=== PATIENT | female | born 1955 | race Caucasian/White ===

== ENCOUNTER 2019-05-16 17:59 | Emergency (ER) | payer BC, SELFPAY ==
[2019-05-16 18:21] VITALS: BP 141/82; PULSE 125; RESP 20; TEMP 37.2; O2SAT 96
--- NOTE | 2019-05-16 18:28 | ED.URI ---
HPI - URI/Sore Throat General Chief Complaint: Upper Respiratory Infection Stated Complaint: Cough/Sob/Wheezing Time Seen by Provider: 05/16/19 18:45 Source: patient and RN notes reviewed Mode of arrival: ambulatory Limitations: no limitations History of Present Illness HPI Narrative: 63-year-old female presents with concern for ongoing cough. Reports upper respiratory symptoms for approximately 2 weeks with cough not improving. Reports rhinorrhea, nasal congestion. Reports low-grade fever. MD elicited complaint: cough Related Data Home Medications Medication Instructions Recorded Confirmed meloxicam 15 mg tablet 15 mg PO DAILY 03/04/19 04/19/19 Allergies Allergy/AdvReac Type Severity Reaction Status Date / Time citalopram Allergy Unknown Cough Verified 04/11/19 13:50 sertraline Allergy Unknown Rash Verified 04/11/19 13:50 Review of Systems Review of Systems: Narrative: CONSTITUTIONAL: Reports malaise. Denies chills, sweats, or fever. EYES: Denies visual changes, redness, or discharge. ENT: Reports rhinorrhea, congestion. Denies sinus pain, otalgia and sore throat. CARDIOVASCULAR: Denies chest pain, palpitations, or edema. RESPIRATORY: Reports cough, wheezing, occasional dyspnea. GASTROINTESTINAL: Denies abdominal pain, nausea, vomiting, diarrhea SKIN: Denies rash or itching. MUSCULOSKELETAL: Denies myalgia. NEUROLOGIC: Denies headache. All systems reviewed & are unremarkable except as noted in HPI and below PMFSH Past Medical History Medical History Allergic rhinitis Asthma Depression Dysfunction of right eustachian tube Hyperlipidemia Social History Social History Smoking status: Never smoker Alcohol intake: current Comments At time of signature, agree with nursing past medical, surgical, social and family history. There is no relevant family history pertinent to the presenting complaint Exam Narrative: Exam Narrative: GENERAL: Well-appearing, well-nourished, and in no acute distress. HEAD: Normocephalic EYES: PERRLA, conjunctivae clear ENT: Nares clear, turbinates erythematous, clear discharge. Mucous membranes moist. TM pearly monk with dull light reflex bilaterally; no tragal tenderness. Oropharynx not erythematous without lesions. Tonsils not enlarged and without exudate, no drooling, no hoarseness, no trismus, uvula midline. NECK: Supple. No lymphadenopathy CHEST: Generalized inspiratory wheeze, breath sounds diminished in the right lower lobe. No rhonchi, rales, or stridor. No respiratory distress, conversational shortness of breath HEART: Regular rate and rhythm. No murmur heard. SKIN: Warm, dry, no rash. NEURO: Alert and oriented x3. PSYCH: Normal mood and affect Course Course Emergency Course: DuoNeb given, patient reassessed Patient is aware of diagnosis, understands and agrees to treatment plan. Anticipatory guidance given. Patient agrees to follow-up as directed and is aware of reasons to seek care at the emergency department. Portions of this record may have been created with voice recognition software Reevaluation(s) Reevaluation #1: Aeration improved, aeration good, still hear scattered expiratory wheeze. Date: 05/16/19 Time: 19:29 Vital Signs Vital signs: Vital Signs Temperature 99.0 F 05/16/19 18:21 Pulse Rate 125 H 05/16/19 18:21 Respiratory Rate 20 05/16/19 18:21 Blood Pressure 141/82 H 05/16/19 18:21 Pulse Oximetry 96 05/16/19 18:21 Temperature 99.0 F 05/16/19 18:21 Pulse Rate 125 H 05/16/19 18:21 Respiratory Rate 20 05/16/19 18:21 Blood Pressure 141/82 H 05/16/19 18:21 Pulse Oximetry 96 05/16/19 18:21 Reviewed. MDM - URI/Sore Throat MDM Narrative Medical decision making narrative: Differential diagnosis considered: Strep pharyngitis, allergic rhinitis, upper respiratory tract infection, sinusitis, rhinosinusitis, nasopharyn
[2019-05-16] MEDS: ALBUTEROL SULFATE NEB 2.5 MG/3 ML INH INHALATION (18:56)
[2019-05-16] MEDS: IPRATROPIUM BR 0.02% INH SOLN 0.5 MG/2.5 ML VIAL INHALATION (18:56)
[2019-05-16 19:30] VITALS: PULSE 110; RESP 20; O2SAT 97
== END 2019-05-16 19:35 | disposition home or self-care (01) ==
PROVIDERS: Emergency Provider Nurse Practitioner; PCP Family Medicine
DX: J20.9 Acute bronchitis, unspecified (principal); J45.909 Unspecified asthma, uncomplicated; E78.5 Hyperlipidemia, unspecified
CPT/HCPCS: 94640; 99213; G0463

== ENCOUNTER 2022-05-19 23:05 | Outpatient (NON) | payer OTHER, SELFPAY | END 2022-05-19 23:06 | disposition home or self-care (01) | LOC: ANHLAB 23:06 | PROVIDERS: PCP Family Medicine; Visit Provider Family Medicine | DX: N39.0 Urinary tract infection, site not specified (principal) | CPT/HCPCS: 87086 ==

== ENCOUNTER 2022-07-15 09:51 | Outpatient (CLI) | payer OTHER, SELFPAY ==
--- NOTE | ~2022-07-15 | MM_ITS ---
EXAMINATION: MM screening [facility] BI w joan HISTORY: Screening mammogram TECHNIQUE: Craniocaudal and mediolateral oblique 3-D tomosynthesis images were obtained and synthetic 2-D images were generated. CAD analysis was submitted and interpreted. COMPARISON: 04/06/2018, 09/11/2017, 12/19/2016, 12/09/2016 BREAST PARENCHYMAL COMPOSITION: The breasts are heterogeneously dense, which may obscure small masses . FINDINGS: No suspicious mass, calcification, or architectural distortion are identified in either elijah ast to suggest malignancy. There has been no suspicious interval change. IMPRESSION: 1. No mammographic evidence of malignancy. 2. Recommend routine screening mammography in one year. BI-RADS Category 1: Negative Reviewed, dictated and finalized at location A.
--- NOTE | ~2022-07-15 | DEXA_ITS ---
Bone Density Report Name: GUI BROWN Age: 66 Sex: Female Ethnicity: White Date of : 1955 Indication: postmenopausal; screening for osteoporosis; height loss; asthma or emphysema; Referring Provider: PAUL LOPEZ Study: Bone densitometry was performed. Exam Date: July 15, 2022 Accession number: [id number] Bone Density: Region BMD T-score Z-score Classification AP Spine(L1-L4) 0.948 -0.9 0.9 Normal Femoral Neck (Left) 0.651 -1.8 -0.2 Osteopenia Total Hip (Left) 0.876 -0.5 0.7 Normal Femoral Neck (Right) 0.653 -1.8 -0.2 Osteopenia Total Hip (Right) 0.865 -0.6 0.6 Normal Total Hip Mean 0.870 -0.6 0.7 Normal World Health Organization criteria for BMD impression classify patients as: Normal (T-score at or above -1.0), Osteopenia (T-score between -1.0 and -2.5), or Osteoporosis (T-score at or below -2.5). 10-year Fracture Risk(1): Major Osteoporotic Fracture 9.3% Hip Fracture 1.1% Reported Risk Factors: [place] (), Neck BMD=0.651, BMI=32.1 (1) FRAX(R) Version 3.08. Fracture probability calculated for an untreated patient. Fracture probability may be lower if the patient has received treatment. Clinical Information Provided by Patient: Has the following medical conditions: Asthma or Emphysema Patient maximum height was 62 Menopause Age: 56 No regular weight bearing exercise Drinks caffeinated beverages Onset of menses at age 13 Number of children 0 Impression: The patient has low bone mass, based on the Left Femoral Neck T-score. The patient has an estimated ten-year risk of hip fracture of 1.1% and an estimated ten-year risk of major fracture of 9.3%, based on the WHO FRAX algorithm. Discussion: BONE DENSITY IS LOW AT ONE OR MORE SKELETAL SITES. This patient's lowest T-score is low at one or more skeletal sites. It meets the World Health Organization's (WHO) criteria for ?low bone mass? (T-score between -1.0 and -2.5). The patient's 10-year risk of fracture as calculated by FRAX is less than the threshold where pharmacological therapy is recommended by the National Osteoporosis Foundation (NOF). However, all treatment decisions require clinical judgment and consideration of individual patient factors, including patient preferences, comorbidities, previous drug use, risk factors not captured in the FRAX model (e.g., frailty, falls, vitamin D deficiency, increased bone turnover, interval significant decline in bone density) and possible under or overestimation of fracture risk by FRAX. The patient should follow a healthful lifestyle (good nutrition with adequate calcium and vitamin D, and appropriate weight-bearing exercise). Follow-Up: Consider repeating this study in 2 to 3 years to reassess this patient's status, or sooner if there is some new clinical indicat
== END 2022-07-15 09:52 | disposition home or self-care (01) ==
LOC: ANHIMG 09:52
PROVIDERS: PCP Family Medicine; Visit Provider Nurse Practitioner Family
DX: Z12.31 Encounter for screening mammogram for malignant neoplasm of breast (principal); Z78.0 Asymptomatic menopausal state; M85.852 Other specified disorders of bone density and structure, left thigh; M85.851 Other specified disorders of bone density and structure, right thigh
CPT/HCPCS: 77063; 77067; 77080

== ENCOUNTER 2024-06-08 12:53 | Emergency (ER) | payer OTHER, SELFPAY ==
--- OUTSIDE RECORDS SUMMARY | 2024-06-08 12:56 | XMS_ITS | Clinical Summary ---
Author Organization [facility] Building [address] Address [address] [place] [address] Care Team Providers Care Clay Miner Name Role Phone No, Physician Primary Care Provider [phone] Allergies No known active allergies Medications naproxen (ALEVE) 220 mg tablet Take by mouth 2 (two) times a day with meals Active Active Problems Problem Noted Date Diagnosed Date Hearing loss of right ear 11/25/2019 Assessment & Plan (11/25/2019 2:46 PM CDT): Avoid ear cleaning techniques Avoid water to ears Apply Cortisone to outer portion of ear only Hearing test with [facility] Impacted cerumen of right ear 11/25/2019 Assessment & Plan (11/25/2019 2:46 PM CDT): Avoid ear cleaning techniques Avoid water to ears Apply Cortisone to outer portion of ear only Hearing test with [facility] Social History Tobacco Use Types Packs/Day Years Used Date Smoking Tobacco: Never Smokeless Tobacco: Never Personal Safety Answer Date Recorded Getting School Help Needed Not on file 05/19 Comments Unknown Sex and Gender Information Value Date Recorded Sex Assigned at Not on file 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 Gender Identity Not on file Sexual Orientation Not on file Obstetrics History Last Filed Vital Signs Vital Sign Reading Time Taken Comments Blood Pressure 117/79 11/25/2019 2:26 PM CDT Pulse 81 11/25/2019 2:26 PM CDT Temperature 36.6 C (97.8 F) 11/25/2019 2:26 PM CDT Respiratory Rate - - Oxygen Saturation - - Inhaled Oxygen Concentration - - Weight 69.9 kg (154 lb 3.2 oz) 11/25/2019 2:26 P M CDT Height 154.9 cm (5' 1 ) 11/25/2019 2:26 PM CDT Body Mass Index 29.14 11/25/2019 2:26 PM CDT Plan of Treatment Not on file Insurance [employer] [place] Care Teams Clay Miner Relationship Specialty Start Date End Date No, Physician PCP - General 11/25/19
--- OUTSIDE RECORDS SUMMARY | 2024-06-08 12:56 | XMS_ITS | Referral Summary ---
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
--- OUTSIDE RECORDS SUMMARY | 2024-06-08 12:56 | XMS_ITS | Clinical Summary ---
Author Organization [facility] Address [address], [address] [address] Phone Care Team Providers Care Deployment Engineer Name Role Phone Unavailable Primary Care Provider Unavailabl e Allergies No known active allergies Medications naproxen sodium (ALEVE) 220 MG Tablet Take 220 mg by mouth as needed. Active Probiotic Product (PROBIOTIC DAILY PO) Take by mouth daily. 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 Immunizations Immunization Administration Dates Next Due Covid-19, Mrna, Lnp-s, PF, 1 00 mcg/0.5 mL Dose (Moderna) 08/10/2020,07/13/2020 Family History Medical History Relation Name Comments No Known Problems Brother Depression Father Alzheimer's Disease Maternal Uncle Alzheimer's Disease Mother Colon Cancer Mother age 74 Colon Cancer Other cousin age 56 Colon Cancer Paternal Uncle No Known Problems Sister Relation Name Status Comments Brother Alive Father Maternal Uncle Mother Other cousin Paternal Uncle Sister Alive Social History Tobacco Use Types Packs/Day Years Used Date Smoking Tobacco: Never Smokeless Tobacco: Never Alcohol Use Standard Drinks/Week Comments Yes 2 (1 standard drink = 0.6 oz pur e alcohol) Comments Unknown Sex and Gender Information Value Date Recorded Sex Assigned at Not on file Legal Sex Female 9:09 PM CDT Gender Identity Not on file Sexual Orientation Not on file 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 Industry Job Start 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 Job 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 Not on file Not on file Not on file Last Filed Vital Signs Vital Sign Reading Time Taken Comments Blood Pressure 108/62 08/24/2020 10:19 AM CDT Pulse 67 08/24/2020 10:19 AM CDT Temperature 37 C (98.6 F) 08/24/2020 7:44 AM CDT Respiratory Rate 19 08/24/2020 10:19 AM CDT Oxygen Saturation 100% 08/24/2020 10:19 AM CDT Inhaled Oxygen Concentration - - Weight 75.3 kg (166 lb) 08/13/2020 11:00 AM CDT Height 157.5 cm (5' 2 ) 08/13/2020 11:00 AM CDT Body Mass Index 30.36 08/13/2020 11:00 AM CDT Plan of Treatment Health Maintenance Due Date Last Done Comments Hepatitis C Virus (HCV) Screening 1955 TdaP Immunization 1955 Cologuard 2006 Immunochemical Fecal Occult Blood 2006 Pneumococcal Immunization (5 0+ years) (1 of 1 - PCV) 2006 Zoster Immunization (1 of 2) 2006 Influenza Immunization (#1) 2023 SARS-COV-2 Immunization ( season) 2023 02/24/2021, 08/10/2020, 07/13/2020 Colonoscopy 08/24/2025 08/24/2020, 04/01/2015 Colorectal Cancer Screening 08/24/2025 Respiratory Syncytial Virus (RSV) Immunization (Adult) (1 - 1-dose 75+ series) 09/23/2031 08/24/2020, 04/01/2015 Mammogram Discontinued 12/09/2016 Hepatitis B Immunization Aged Out No longer eligible based on patient's age to complete this topic Meningococcal Immunization (ACWY) Aged Out No longer eligible based on patient's age to complete this topic Rotavirus Immunization Aged Out No lo nger eligible based on patient's age to complete this topic Procedures Procedure Name Priority Date/Time Associated Diagnosis Comments NANCY SCREENING BILATERAL WITH CAD Routine 12/09/2016 from Last 3 Months or Most Recently Relevant to Health Maintenance Results * NANCY SCREENING BILATERAL WITH CAD (12/09/2016) Anatomical Region Laterality Modality breast Bilateral Mammography Jorge Pete MD IMG MAMMO ORDERABLES Final Result from Last 3 Months or Most Recently Relevant to Health Maintenance Insurance
--- OUTSIDE RECORDS SUMMARY | 2024-06-08 12:56 | XMS_ITS | Clinical Summary ---
Author Organization [facility] Address [address] [place] [address] Care Team Providers Care Rn Hemo Dialysis Name Role Phone Unavailable Primary Care Provider Unavailabl e Source Comments [facility],non-owned Affiliates and Associated Physician Practices is amultiple site organization consisting of ambulatory clinics and hospital sitesin [place], [place], [place] and [place]. This disclosure is being madepursuant to the Care Everywhere program and may not contain all information available regarding this patient. Last updated 17.[facility] Social History Tobacco Use Types Packs/Day Years Used Date Smoking Tobacco: Never Assessed Sex and Gender Information Value Date Recorded Sex Assigned at Not on file Gender Identity Not on file Sexual Orientation Not on file Plan of Treatment Health Maintenance Due Date Last Done Comments BONE DENSITY TESTING 1955 COLOGUARD (AGES 45-75) - COL ON CA SCREENING 1955 COLON MONITORING 1955 COLONOSCOPY - COLON CA SCREENING 1955 CT COLONOGRAPHY - COLON CA SCREENING 1955 Colorectal Cancer Screening 1955 FIT - COLON CA SCREENING 1955 FLEX SIG - COLON CA SCREENING 1955 LIPID TESTING 1955 MAMMOGRAM 1955 HEPATITIS C SCREENING 09/18/1974 DTAP/TDAP/TD VACCINES (1 - Tdap) 09/23/1975 PNEUMOCOCCAL VACCINE 50+ (1 of 1 - PCV) 2006 ZOSTER VACCINE (1 of 2) 2006 COVID-19 VACCINE ( - 2023-2 5 season) 2023 DEPRESSION SCREENING 03/06/2024 INFLUENZA VACCINE (Season Ended) 2024 Respiratory Syncytial Virus (RSV) Vaccine Pt: or over 60 yrs (1 - 1-dose 75+ series) 09/23/2031 HEPATITIS B VACCINE Aged Out No longe r eligible based on patient's age to complete this topic HIB VACCINE Aged Out No longer eligi ble based on patient's age to complete this topic HPV VACCINE Aged Out No longer eligi ble based on patient's age to complete this topic MENINGOCOCCAL (Group B) VACC INE SHARED DECISION-MAKING Aged Out No longer eligibl e based on patient's age to complete this topic MENINGOCOCCAL GROUPS A/C/Y/W VACCINE Aged Out No longer eligible b ased on patient's age to complete this topic
--- OUTSIDE RECORDS SUMMARY | 2024-06-08 12:56 | XMS_ITS | Clinical Summary ---
Author Organization [facility] Address [address] [place] [address] Phone Care Team Providers Care Entry Operator Name Role Phone Jorge Pete MD Primary Care Provider Allergies No known active allergies Medications No known medications Active Problems Patient Care Coordination No te Formatting of this note migh t be different from the original. Primary Care: Jorge Pete MD Referring Provider: No referring provider defined for this encounter. 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 Scratch 07/26/2018 Atypical ductal hyperplasia of breast 04/10/2017 Resolved Problems Problem Noted Date Diagnosed Date Resolved Date Papilloma 02/03/2017 07/26/2018 Family History Medical History Relation Name Comments Colon Cancer Mother Colon Cancer Paternal Cousin 1 Colon Cancer Paternal Cousin 2 Colon Cancer Paternal Uncle Relation Name Status Comments Mother Paternal Cousin 1 Paternal Cousin 2 Paternal Uncle Social History Tobacco Use Types Packs/Day Years Used Date Smoking Tobacco: Never Smokeless Tobacco: Never Alcohol Use Standard Drinks/Week Comments Yes 0 (1 standard drink = 0.6 oz pur e alcohol) moderate Comments No Sex and Gender Information Value Date Recorded Sex Assigned at Not on file 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 Gender Identity Not on file Sexual Orientation Not on file Last Filed Vital Signs Vital Sign Reading Time Taken Comments Blood Pressure 131/79 07/26/2018 10:34 AM CDT Pulse 83 07/26/2018 10:34 AM CDT Temperature 36.9 C (98.4 F) 07/26/2018 10:34 AM CDT Respiratory Rate 20 03/23/2017 10:20 AM DIE TRIMMER Oxygen Saturation 98% 07/26/2018 10:34 AM CDT Inhaled Oxygen Concentration - - Weight 77.2 kg (170 lb 3.2 oz) 07/26/2018 10:34 AM CDT Height 157.5 cm (5' 2 ) 07/26/2018 10:34 AM CDT Body Mass Index 31.13 07/26/2018 10:34 AM CDT Plan of Treatment Health Maintenance Due Date Last Done Comments DTAP/TDAP/TD VACCINES (1 - Tdap) 09/23/1975 COLORECTAL SCREENING 2001 Colorectal Cancer Screening 2001 FIT-DNA Q 3 years 2001 FIT/FOBT Q 1 year 2001 Flex Sig/CT Colonography Q 5 years 2001 PNEUMOCOCCAL VACCINE 50+ YEA RS (1 of 1 - PCV) 2006 ZOSTER VACCINE (1 of 2) 2006 BREAST CANCER SCREENING 12/21/2017 12/22/19 17, 12/19/2016, 12/09/2016 OSTEOPOROSIS SCREENING 2021 INFLUENZA VACCINE (#1) 2023 RSV VACCINE (60+ or ) (1 - 1-dose 75+ series) 09/23/2031 Medical Devices Implanted Type Area Live Games Dealer Device Identifier Shelf Expiration Date Model / Serial / Lot Hemostatic Surgicel 2x14in 1949 - [id number] Implanted:Qty: 1 on 03/23/2017 by Bozena Moran MD at [facility] Hemostatic Right: Breast [employer] 08/03/20201950 / / [id number] Procedures Procedure Name Priority Date/Time Associated Diagnosis Comments MAMMO DIAGNOSTIC UNI RIGHT W OR WO CAD Routine 12/21/2016 from Last 3 Months or Most Recently Relevant to Health Maintenance Results * MAMMO DIAGNOSTIC UNI RIGHT W OR WO CAD (12/21/2016) Anatomical Region Laterality Modality Breast Right Mammography us Jorge Pete MD MAMMO ORDERABLES Edited Res ult - Final from Last 3 Months or Most Recently Relevant to Health Maintenance Insurance BLUE PREFERRED Advance Directives For more information, please contact: [phone] Documents on File Type Date Recorded Patient Die Designer Expl anation Advance Directive Living Will 02/03/2017 9:46 AM Advance Directive Living Will Advance Directive POA 02/03/2017 9:45 AM A dvance Directive POA * Full Code (Latest Code Status on File) Date Activated Date Inactivated Comments 03/23/2017 9:06 AM 03/23/2017 12:42 PM Care Teams Entry Operator Relationship Specialty Start Date End Date Jorge Pete MD [address] [place] [address] PCP - General Family Practice 02/03/17
[2024-06-08 12:58] VITALS: BP 117/68; PULSE 106; RESP 20; TEMP 37; O2SAT 100
[2024-06-08 13:21] LABS: EDINFLUASCREEN Negative (Negative); EDINFLUBSCREEN Negative (Negative)
--- NOTE | 2024-06-08 13:28 | ED.GENADULT ---
HPI - General Adult General Chief complaint: Upper Respiratory Infection Stated complaint: Earache,Headache,Cough,Congestion Source: patient Mode of arrival: ambulatory Limitations: no limitations History of Present Illness HPI narrative: Pt presents for evaluation of sick symptoms for the past four days. Symptoms include fever, chills, headache, body aches, bilateral ear pressure, sinus congestion, thick yellow/green nasal drainage and productive cough of yellow/green sputum. She has also woke from sleep with her eyes matted shut with thick yellow drainage. Denies visual disturbance. She does not were glasses or contacts. Her is currently sick with similar symptoms. His symptoms started 2 days prior to hers. She does not smoke. She has been taking dayquil and nyquild for her symptoms. She denies any nausea, vomiting or diarrhea. She took a COVID test at home 2 days ago which was negative. Related Data Allergies Allergy/AdvReac Type Severity Reaction Status Date / Time sertraline Allergy Unknown Rash Verified 11/08/22 14:09 Review of Systems Review of Systems: CONSTITUTIONAL: Reports fever, chills, fatigue EYES:Reports thick yellow drainage from the eyes. Denies visual changes ENT: Reports sinus congestion, thick yellow drainage from the nares, and pressure in the ears. Denies sore throat. CARDIOVASCULAR: Denies chest pain, palpitations, or edema. RESPIRATORY: Reports productive cough of yellow sputum. Denies shortness of breath. GASTROINTESTINAL: Denies abdominal pain, nausea, vomiting, or diarrhea. GENITOURINARY: Denies dysuria or hematuria. SKIN: Denies rash or itching. MUSCULOSKELETAL: Reports generalized body aches. NEUROLOGIC: Reports headache. Denies numbness, dizziness, or weakness. PSYCHIATRIC: Denies anxiety or depression. [facility] Past Medical History Medical History Hyperlipidemia Allergic rhinitis Asthma Surgical History Surgical History Hx of breast biopsy RT breast -12/2016 H/O colonoscopy 09/2008, 10/2015 Family History Family History Mother Carcinoma of colon Family history of Alzheimer's disease Social History Social History Social History: Patient is to her Yamil for 30 yrs, they have no children. 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 Smoking status: Never smoker Alcohol intake: current Substance use: never Substance use type: does not use Lack of Transportation: No Lack of Food: Never True Current Housing: I Have Housing Concerned About Future Housing: No Difficulty Paying Gas/Electric Bills: No Difficulty Paying for Meds: No Currently Unemployed: No Education: High School Diploma/GED Difficulty w/ Childcare or Family Care: No Living arrangements: with family Additional living arrangements comments: Occupation/Education: occupation Additional occupation/education comments: Self Gender identity (if verbalized by the patient): Female Sexual Orientation (if Verbalized by the Patient): Straight or Heterosexual Spiritual care concerns: No Exam Narrative: GENERAL: Well-appearing, well-nourished, and in no acute distress. HEAD: Normocephalic, atraumatic. EYES: PERRLA and EOMI. Bilateral conjunctival injection. ENT: Nares clear, no rhinorrhea or epistaxis. Mucous membranes moist. Oropharynx without tonsillar hypertrophy exudate or other lesions. Bilateral TMs are erythematous. Right tympanic membrane is bulging. NECK: Supple. No adenopathy or masses. No carotid bruits or JVD CHEST: Clear to auscultation. No respiratory distress. No wheezes rales or rhonchi HEART: Regular rate and rhythm. No murmur heard. Normal peripheral pulses. ABDOMEN: Soft, nontender, nondistended, normal active bowel sounds. EXTREMITIES: Normal range of motion. No edema. SKIN: Warm, dry, no rash. NEURO: No focal deficits. Alert and oriented x3. PSYCH: Normal mood and affect. Course Course Emergency Course: This is a 68-year-old female who presented for evaluation of sick symptoms. Per COVID test at home was negative. Influenza negative here. She does have evidence of otitis media and conjunctivitis. Will treat with Augmentin and erythromycin. Follow-up with primary provider. Go to the ER for worsening symptoms. Patient in agreement with plan of care. Level of Care: Express Care Visit Vital Signs Vital signs: Vital Signs Temperature 37.0 C 06/08/24 12:58 Pulse Rate 106 H 06/08/24 12:58 Respiratory Rate 20 06/08/24 12:58 Blood Pressure 117/68 06/08/24 12:58 Pulse Oximetry 100 06/08/24 12:58 Oxygen Delivery Room Air 06/08/24 12:58 Temperature 37.0 C 06/08/24 12:58 Pulse Rate 106 H 06/08/24 12:58 Respiratory Rate 20 06/08/24 12:58 Blood Pressure 117/68 06/08/24 12:58 Pulse Oximetry 100 06/08/24 12:58 Oxygen Delivery Room Air 06/08/24 12:58 Medical Decision Making Vital Signs Vital Signs: Vital Signs Temperature 37.0 C 06/08/24 12:58 Pulse Rate 106 H 06/08/24 12:58 Respiratory Rate 20 06/08/24 12:58 Blood Pressure 117/68 06/08/24 12:58 Pulse Oximetry 100 06/08/24 12:58 Oxygen Delivery Room Air 06/08/24 12:58 Temperature 37.0 C 06/08/24 12:58 Pulse Rate 106 H 06/08/24 12:58 Respiratory Rate 20 06/08/24 12:58 Blood Pressure 117/68 06/08/24 12:58 Pulse Oximetry 100 06/08/24 12:58 Oxygen Delivery Room Air 06/08/24 12:58 Lab Data Labs: Lab Results 06/08/24 Range/Units 13:19 POC Influenza A Ag Negative (Negative) POC Influenza B Ag Negative (Negative) Discharge Plan Discharge Clinical Impression: Acute otitis media, right, Conjunctivitis Patient Disposition: Home, Self-Care Condition: Stable Instructions: Antibiotic Form, Ear Infection (GEN), Conjunctivitis (ED) Patient Language: Danish Prescriptions: New amoxicillin-pot clavulanate 875-125 mg tablet 1 tablet PO Q12H Qty: 20 0RF erythromycin 5 mg/gram (0.5 %) ointment 0.5 inch EACH EYE QID Qty: 3.5 0RF No Action albuterol sulfate 90 mcg/actuation HFA aerosol inhaler 2 puff INHALATION QID PRN (Reason: shortness of breath or wheezing) Qty: 8.5 1RF cholecalciferol (vitamin D3) 50 mcg (2,000 unit) capsule 50 mcg PO DAILY Qty: 1 0RF citalopram 20 mg tablet 20 mg PO DAILY Qty: 90 1RF atorvastatin 20 mg tablet 20 mg PO QHS Qty: 90 1RF Follow-up/Referrals: Hugh Bridges MD [Primary Care Provider] - Time of Disposition: 13:21
== END 2024-06-08 13:25 | disposition home or self-care (01) ==
PROVIDERS: Emergency Provider Nurse Practitioner; PCP Family Medicine
DX: H66.91 Otitis media, unspecified, right ear (principal); H10.9 Unspecified conjunctivitis; E78.5 Hyperlipidemia, unspecified; J45.909 Unspecified asthma, uncomplicated
CPT/HCPCS: 87804; 99213; G0463

== ENCOUNTER 2024-11-06 13:11 | Outpatient (CLI) | payer OTHER, SELFPAY ==
--- NOTE | ~2024-11-06 | DEXA_ITS ---
Bone Density Report Name: GUI BROWN Age: 69 Sex: Female Ethnicity: White Date of : 1955 Indication: postmenopausal; screening for osteoporosis; height loss; asthma or emphysema; Referring Provider: NEMO SAWYER Study: Bone densitometry was performed. Exam Date: November 06, 2024 Accession number: [id number] Bone Density: Region BMD T-score Z-score Classification AP Spine(L1-L4) 0.897 -1.4 0.6 Osteopenia Femoral Neck (Left) 0.648 -1.8 -0.1 Osteopenia Total Hip (Left) 0.841 -0.8 0.6 Normal Femoral Neck (Right) 0.648 -1.8 -0.1 Osteopenia Total Hip (Right) 0.880 -0.5 0.9 Normal Total Hip Mean 0.860 -0.7 0.8 Normal World Health Organization criteria for BMD impression classify patients as: Normal (T-score at or above -1.0), Osteopenia (T-score between -1.0 and -2.5), or Osteoporosis (T-score at or below -2.5). 10-year Fracture Risk(1): Major Osteoporotic Fracture 10% Hip Fracture 1.6% Reported Risk Factors: [place] (), Neck BMD=0.648, BMI=30.8 (1) FRAX(R) Version 3.08. Fracture probability calculated for an untreated patient. Fracture probability may be lower if the patient has received treatment. Previous Exams: Region Exam Age BMD T-score BMD Change BMD Change Date g/cm2 vs Baseline vs Previous AP Spine (L1-L4) 11/06/2024 69 0.897 -1.4 -0.050 (-5.3%) -0.050 (-5.3%) 07/15/2022 66 0.948 -0.9 Total Hip(Left) 11/06/2024 69 0.841 -0.8 -0.035 (-4.0%) -0.035 (-4.0%) 07/15/2022 66 0.876 -0.5 Total Hip(Right) 11/06/2024 69 0.880 -0.5 0.015 (1.8%) 0.015 (1.8%) 07/15/2022 66 0.865 -0.6 *Denotes significance at 95% confidence level, LSC for AP Spine = 0.022 g/cm2, LSC for Total Hip = 0.027 g/cm2 Clinical Information Provided by Patient: Has the following medical conditions: Asthma or Emphysema Patient maximum height was 62 Menopause Age: 56 No regular weight bearing exercise Drinks caffeinated beverages Onset of menses at age 13 Number of children 0 Impression: The patient has low bone mass, based on the Left Femoral Neck T-score. The patient has an estimated ten-year risk of hip fracture of 1.6% and an estimated ten-year risk of major fracture of 10%, based on the WHO FRAX algorithm. The BMD for the AP Spine (L1-L4) decreased, changing by -5.3% since the last DXA exam. The BMD for the Total Hip(Left) decreased, changing by -4.0% since the last DXA exam. Discussion: BONE DENSITY IS LOW AT ONE OR MORE SKELETAL SITES. This patient's lowest T-score is low at one or more skeletal sites. It meets the World Health Organization's (WHO) criteria for ?low bone mass? (T-score between -1.0 and -2.5). The patient's 10-year risk of fracture as calculated by FRAX is less than the threshold where pharmacological therapy is recommended by the National Osteoporosis Foundation (NOF). However, all treatment decisions require clinical judgment and consideration of individual patient factors, including patient preferences, comorbidities, previous drug use, risk factors not captured in the FRAX model (e.g., frailty, falls, vitamin D deficiency, increased bone turnover, interval significant decline in bone density) and possible under or overestimation of fracture risk by FRAX. The patient should follow a healthful lifestyle (good nutrition with adequate calcium and vitamin D, and appropriate weight-bearing exercise). Follow-Up: Consider repeating this study in 2 years to reassess this patient's status, or sooner if there is some new clinical indication. Reported by: ISRAEL on 11/06/2024 1:49:00 PM. Reviewed, dictated and finalized at location A.
--- NOTE | ~2024-11-06 | MM_ITS ---
EXAMINATION: MM screening sandi BI w joan HISTORY: Screening TECHNIQUE: Craniocaudal and mediolateral oblique 3-D tomosynthesis images were obtained and synthetic 2-D images were generated. CAD analysis was submitted and interpreted. COMPARISON: Mammogram 07/15/2022 BREAST PARENCHYMAL COMPOSITION: There are scattered areas of fibroglandular density. FINDINGS: There is no evidence of suspicious mass, calcification, or architectural distortion to suggest malignancy. There has been no suspicious interval change. IMPRESSION: 1. No mammographic evidence of malignancy. Recommend routine screening mammography in one year. BI-RADS Category 2: Benign finding(s) Reviewed, dictated and finalized at location Q. IMPRESSION: 1. No mammographic evidence of malignancy. Recommend routine screening mammogra phy in one year. BI-RADS Category 2: Benign finding(s)
--- OUTSIDE RECORDS SUMMARY | 2024-11-06 14:24 | XMS_ITS | Clinical Summary ---
Author Organization [facility] Address [address], [address] [address] Phone Care Team Providers Care Glazier Artist Name Role Phone Unavailable Primary Care Provider [...] 11:00 AM CDT Height 157.5 cm (5' 2) 08/13/2020 11:00 AM CDT Body Mass Index 30.36 08/13/2020 11:00 AM CDT Plan of Treatment Health Maintenance Due Date Last Done Comments Hepatitis C Virus (HCV) Screening 1955 TdaP Immunization 1955 Cologuard 2001 Immunochemical Fecal Occult Blood 2001 Pneumococcal Immunization (5 0+ years) (1 of 1 - PCV) 2006 Zoster Immunization (1 of 2) 2006 Influenza Immunization (#1) 2024 SARS-COV-2 Immunization ( season) 2024 02/24/2021, 08/10/2020, 07/13/2020 Colonoscopy 08/24/2025 08/24/2020, 04/01/2015 Colorectal Cancer Screening 08/24/2025 Respiratory Syncytial Virus (RSV) Immunization (Adult) (1 - 1-dose 75+ series) 09/23/2031 Mammogram Discontinued 12/09/2016 Hepatitis B Immunization Aged Out No longer eligible based on patient's age to complete this topic Human Papillomavirus (HPV) Immunization Aged Out No longer eligible based [...] Anatomical Region Laterality Modality breast Bilateral Mammography us Jorge Pete MD IMG MAMMO ORDERABLES Final Result from Last 3 Months or Most Recently Relevant to Health Maintenance Insurance
--- OUTSIDE RECORDS SUMMARY | 2024-11-06 14:24 | XMS_ITS | Clinical Summary ---
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 Gender Identity Not on file Sexual Orientation Not on file Last Filed Vital Signs Vital Sign Reading Time Taken Comments Blood Pressure 131/79 07/26/2018 10:34 AM CDT Pulse 83 07/26/2018 10:34 AM CDT Temperature 36.9 C (98.4 F) 07/26/2018 10:34 AM CDT Respiratory Rate 20 03/23/2017 10:20 AM CATALOGUE LIBRARIAN Oxygen Saturation 98% 07/26/2018 10:34 AM CDT Inhaled Oxygen Concentration - - Weight 77.2 kg (170 lb 3.2 oz) 07/26/2018 10:34 AM CDT Height 157.5 cm (5' 2) 07/26/2018 10:34 AM CDT Body Mass Index [...] 12/09/2016 OSTEOPOROSIS SCREENING 2021 INFLUENZA VACCINE (#1) 2024 RSV VACCINE (60+ or ) (1 - 1-dose 75+ series) 09/23/2031 Medical Devices Implanted Type Area Line Worker Device Identifier Shelf Expiration Date Model / Serial / Lot Hemostatic Surgicel 2x14in 1949 - [id number] Implanted:Qty: 1 on 03/23/2017 by Bozena Moran MD at [facility] Hemostatic Right: Breast [employer] 08/03/20201950 / / [id number] Procedures Procedure Name Priority Date/Time Associated Diagnosis [...] Advance Directives For more information, please contact: [phone] Documents on File Type Date Recorded Patient Windlasser Expl anation Advance Directive Living Will 02/03/2017 9:46 AM Advance Directive Living Will Advance Directive POA 02/03/2017 9:45 AM A dvance Directive POA * Full Code (Latest Code Status on File) Date Activated Date Inactivated Comments 03/23/2017 9:06 AM 03/23/2017 12:42 PM Care Teams Teacher Asst Relationship Specialty Start Date End Date Jorge Pete MD [address] [place] [address] PCP - General Family Practice 02/03/17
--- OUTSIDE RECORDS SUMMARY | 2024-11-06 14:24 | XMS_ITS | Clinical Summary ---
Author Organization [facility] Address [address] [place] [address] Care Team Providers Care Fire Controlman Name Role Phone Unavailable Primary Care Provider Unavailabl e Source Comments [facility],non-owned Affiliates and Associated Physician Practices is amultiple site organization consisting of ambulatory clinics and hospital sitesin [place], [place], [place] and [place]. This disclosure is being madepursuant to the Care Everywhere program and may not contain all information available regarding this patient. 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
--- OUTSIDE RECORDS SUMMARY | 2024-11-06 14:24 | XMS_ITS | Clinical Summary ---
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
--- OUTSIDE RECORDS SUMMARY | 2024-11-06 14:24 | XMS_ITS | Patient Health Record ---
Author Organization [facility] Address [address] [facility] [address] [place] [address] Care Team Providers Care Firmware Architect Name Role Phone Esteban Epps Unavailable [phone] Reason For Referral No Information Plan Of Treatment No Information Insurance Providers Payer Name Payer Address Payer Phone Subscriber Number Group Number Insured Name Patient Relationship to Insured Coverage Start Date Coverage End Date [facility] [address] [place] [address] [id number] GUI BROWN Self - patient is the insured
== END 2024-11-06 13:12 | disposition home or self-care (01) ==
PROVIDERS: PCP Family Medicine; Visit Provider Nurse Practitioner Family
DX: Z12.31 Encounter for screening mammogram for malignant neoplasm of breast (principal); Z78.0 Asymptomatic menopausal state; M85.88 Other specified disorders of bone density and structure, other site; M85.852 Other specified disorders of bone density and structure, left thigh; M85.851 Other specified disorders of bone density and structure, right thigh
CPT/HCPCS: 77063; 77067; 77080

== ENCOUNTER 2025-01-08 10:07 | Emergency (ER) | payer OTHER, SELFPAY ==
[2025-01-08 10:17] VITALS: BP 141/76; PULSE 83; RESP 18; TEMP 36.6; O2SAT 97
--- NOTE | 2025-01-08 10:57 | ED.URI ---
HPI - URI/Sore Throat General Chief Complaint: Upper Respiratory Infection Stated Complaint: congestion/throat Time Seen by Provider: 01/08/25 10:58 Source: patient and RN notes reviewed Mode of arrival: ambulatory Limitations: no limitations History of Present Illness HPI Narrative: 69-year-old female presents with concern of for 3 week history of nasal congestion, drainage, cough. Reports she took pseudoephedrine for about 2 weeks without relief. She reports her had similar symptoms but he has gotten better and she is not. She reports cough at night MD elicited complaint: cough and nasal congestion Related Data Allergies Allergy/AdvReac Type Severity Reaction Status Date / Time sertraline Allergy Unknown Rash Verified 01/08/25 10:35 amoxicillin AdvReac Mild Nausea and Verified 01/08/25 10:35 Vomiting Review of Systems Review of Systems: CONSTITUTIONAL: Denies malaise, chills, sweats, or fever. EYES: Denies visual changes, redness, or discharge. ENT: Reports rhinorrhea, congestion CARDIOVASCULAR: Denies chest pain, palpitations, or edema. RESPIRATORY: Reports cough. Denies dyspnea. GASTROINTESTINAL: Denies abdominal pain, nausea, vomiting, diarrhea SKIN: Denies rash or itching. MUSCULOSKELETAL: Denies myalgia. NEUROLOGIC: Denies headache. All systems reviewed & are unremarkable except as noted in HPI and below PMFSH Past Medical History Medical History Hyperlipidemia Allergic rhinitis Asthma Surgical History Surgical History Hx of breast biopsy RT breast -12/2016 H/O colonoscopy 09/2008, 10/2015 Family History Family History Mother Carcinoma of colon Family history of Alzheimer's disease Social History Social History Social History: Patient is to her Yamil for 30 yrs, they have no children. 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 Alcohol intake: current Substance use: never Substance use type: does not use Lack of Transportation: No Lack of Food: Never True Current Housing: I Have Housing Concerned About Future Housing: No Difficulty Paying Gas/Electric Bills: No Difficulty Paying for Meds: No Currently Unemployed: No Education: High School Diploma/GED Difficulty w/ Childcare or Family Care: No Living arrangements: with family Additional living arrangements comments: Occupation/Education: occupation Additional occupation/education comments: Self Gender identity (if verbalized by the patient): Female Sexual Orientation (if Verbalized by the Patient): Straight or Heterosexual Spiritual care concerns: No Comments At time of signature, agree with nursing past medical, surgical, social and family history. There is no relevant family history pertinent to the presenting complaint Exam Narrative: GENERAL: Well-appearing, well-nourished, and in no acute distress. HEAD: Normocephalic EYES: PERRLA, conjunctivae clear ENT: Nares clear, turbinates edematous and erythematous. Mucous membranes moist. TM pearly monk with dull light reflex bilaterally; no tragal tenderness. Oropharynx not erythematous without lesions. Tonsils not enlarged and without exudate, no drooling, no hoarseness, no trismus, uvula midline. NECK: Supple. No lymphadenopathy CHEST: Clear to auscultation, breath sounds equal. No wheezing, rhonchi, rales, or stridor. No respiratory distress, speaks in full sentences. HEART: Regular rate and rhythm. No murmur heard. SKIN: Warm, dry, no rash. NEURO: Alert and oriented x3. PSYCH: Normal mood and affect Course Course Emergency Course: Patient is aware of diagnosis, understands and agrees to treatment plan. Anticipatory guidance given. Patient agrees to follow-up as directed and is aware of reasons to seek care at the emergency department. Portions of this record may have been created with voice recognition software Level of Care: Express Care Visit Vital Signs Vital signs: Vital Signs Temperature 97.9 F 01/08/25 10:17 Pulse Rate 83 01/08/25 10:17 Respiratory Rate 18 01/08/25 10:17 Blood Pressure 141/76 H 01/08/25 10:17 Pulse Oximetry 97 01/08/25 10:17 Oxygen Delivery Room Air 01/08/25 10:17 Temperature 97.9 F 01/08/25 10:17 Pulse Rate 83 01/08/25 10:17 Respiratory Rate 18 01/08/25 10:17 Blood Pressure 141/76 H 01/08/25 10:17 Pulse Oximetry 97 01/08/25 10:17 Oxygen Delivery Room Air 01/08/25 10:17 Reviewed. MDM - URI/Sore Throat MDM Narrative Medical decision making narrative: Differential diagnosis considered: Rivera virus, strep pharyngitis, allergic rhinitis, upper respiratory tract infection, sinusitis, rhinosinusitis, nasopharyngitis. viral pharyngitis, otitis media, otitis externa, pneumonia, bronchitis, viral cough syndrome, viral syndrome, and influenza. Exam findings show no acute concerns or changes; patient is non-toxic appearing and is in no distress. Patient is appropriate for outpatient treatment and follow-up. Lab Data Attestation: I reviewed the patient's lab results. Critical Care Time Critical Care Time Critical Care Time: No Discharge Plan Discharge Clinical Impression: Sinobronchitis Patient Disposition: Home Condition: Stable Instructions: Antibiotic Form, Sinusitis (ED) Additional Instructions: Take medication as prescribed Recommend antihistamine such as Benadryl at night time and Zyrtec or Ginna during the day Cough syrup may cause drowsiness; avoid driving or take it at night time. Also, recommend symptomatic treatment includes: rest, fluids, and increase humidity of the air at home. Recommend Acetaminophen as directed on the bottle to reduce fever, pain, headache. Avoid smoking/second-hand smoke. Please schedule a follow-up visit with your personal physician for further evaluation and treatment within 3-5days. Including recheck and discussion of your blood pressure. If your symptoms persist, change or worsen significantly before you can contact your personal physician then please, without delay, go to the emergency department for further evaluation. Patient Language: Korean Prescriptions: New cefdinir 300 mg capsule 300 mg PO Q12H 10 Days Qty: 20 0RF promethazine-DM 6.25-15 mg/5 mL syrup 5 ml PO Q4-6H PRN (Reason: cough) Qty: 120 0RF methylprednisolone [Medrol (Robert)] 4 mg tablets,dose pack See Rx Instructions .ROUTE .COMPLEX Qty: 21 0RF Rx Instructions: orally per package directions No Action albuterol sulfate 90 mcg/actuation HFA aerosol inhaler 2 puff INHALATION QID PRN (Reason: shortness of breath or wheezing) Qty: 8.5 1RF citalopram 10 mg tablet 10 mg PO DAILY Qty: 90 1RF calcium carbonate [Calcium 600] 600 mg calcium (1,500 mg) tablet 600 mg PO BID Qty: 180 0RF cholecalciferol (vitamin D3) 50 mcg (2,000 unit) capsule 50 mcg PO DAILY Qty: 90 0RF atorvastatin 20 mg tablet 20 mg PO QHS Qty: 90 1RF Follow-up/Referrals: Hugh Bridges MD [Primary Care Provider, Family Practice] Time of Disposition: 11:06
--- OUTSIDE RECORDS SUMMARY | 2025-01-09 09:54 | XMS_ITS | Clinical Summary ---
Author Organization [facility] [employer] Address [address] [place] [address] Care Team Providers Care Dirt Bike Racer Name Role Phone Unavailable Primary Care Provider Unavailabl e Source Comments [facility] [employer],non-owned Affiliates and Associated Physician Practices is amultiple site organization consisting of ambulatory clinics and hospital sitesin [place], [place], [place] and [place]. This disclosure is being madepursuant to the Care Everywhere program and may not contain all information available regarding this patient. 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
--- OUTSIDE RECORDS SUMMARY | 2025-01-09 09:54 | XMS_ITS | Clinical Summary ---
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
--- OUTSIDE RECORDS SUMMARY | 2025-01-09 09:54 | XMS_ITS | Clinical Summary ---
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 Gender Identity Not on file Sexual Orientation Not on file Last Filed Vital Signs Vital Sign Reading Time Taken Comments Blood Pressure 131/79 07/26/2018 10:34 AM CDT Pulse 83 07/26/2018 10:34 AM CDT Temperature 36.9 C (98.4 F) 07/26/2018 10:34 AM CDT Respiratory Rate 20 03/23/2017 10:20 AM SEDIMENT REMEDIATION CONSULTANT Oxygen Saturation 98% 07/26/2018 10:34 AM CDT [...] series) 09/23/2031 Medical Devices Implanted Type Area Knocker Out Device Identifier Shelf Expiration Date Model / Serial / Lot Hemostatic Surgicel 2x14in 1949 - [id number] Implanted:Qty: 1 on 03/23/2017 by Bozena Moran MD at [facility] [place] Hemostatic Right: Breast [employer] 08/03/20201950 / / [id number] Procedures Procedure Name Priority Date/Time Associated Diagnosis [...] Advance Directives For more information, please contact: [phone] Documents on File Type Date Recorded Patient Wharf Hand Expl anation Advance Directive Living Will 02/03/2017 9:46 AM Advance Directive Living Will Advance Directive POA 02/03/2017 9:45 AM A dvance Directive POA * Full Code (Latest Code Status on File) Date Activated Date Inactivated Comments 03/23/2017 9:06 AM 03/23/2017 12:42 PM Care Teams Gold Stamper Relationship Specialty Start Date End Date Jorge Pete MD [address] [place] [address] PCP - General Family Practice 02/03/17
--- OUTSIDE RECORDS SUMMARY | 2025-01-09 09:54 | XMS_ITS | Clinical Summary ---
Author Organization [facility] Address [address], [address] [address] Phone Care Team Providers Care Ct Scan Technologist Name Role Phone Unavailable Primary Care Provider [...]
--- OUTSIDE RECORDS SUMMARY | 2025-01-09 09:54 | XMS_ITS ---
Author Organization Unknown ENCOUNTERS Encounter Performer Location Date Diagnosis Diagnosis Status Outpatient [place] [id number] [facility] [address] [place] [address] [id number] [facility] Outpatient [facility] [address] [place] [address] [id number] [facility] Outpatient [place] [address] [place] [address] [id number] MIKAYLA *Note: Encounters from your own facility or health system may be excluded. Allergies, Adverse Reactions, Alerts Allergen Type Severity Identification Date sertraline drug allergy 3 [id number] amoxicillin drug allergy 2 [id number] Medications Name Date Quantity Days Supplied [facility] Number
--- OUTSIDE RECORDS SUMMARY | 2025-01-09 09:55 | XMS_ITS | Patient Health Record ---
Author Organization [facility] [employer] Address [address] [facility] [address] [facility] [address] [place] [address] Care Team Providers Care Metal Burnisher Name Role Phone Esteban Epps Unavailable [phone] Reason For Referral No Information Plan Of Treatment No Information Insurance Providers Payer Name Payer Address Payer Phone Subscriber Number Group Number Insured Name Patient Relationship to Insured Coverage Start Date Coverage End Date [facility] [address] [place] [address] [id number] Self - patient is the insured
== END 2025-01-08 11:10 | disposition home or self-care (01) ==
PROVIDERS: Emergency Provider Nurse Practitioner; PCP Family Medicine
DX: J32.9 Chronic sinusitis, unspecified (principal); J40 Bronchitis, not specified as acute or chronic; J45.909 Unspecified asthma, uncomplicated; E78.5 Hyperlipidemia, unspecified
CPT/HCPCS: 99213; G0463